=== PATIENT | female | born 2005 | race Caucasian/White ===

== ENCOUNTER 2023-07-07 16:28 | Emergency (ER) | payer MEDICARE, MEDICAID, SELFPAY ==
[2023-07-07 16:34] VITALS: BP 116/71; PULSE 101; RESP 16; TEMP 36.5; O2SAT 99
[2023-07-07 16:47] VITALS: BP 116/71; PULSE 101; RESP 16; TEMP 36.5; O2SAT 99
--- NOTE | 2023-07-07 16:56 | ED.URI ---
HPI - URI/Sore Throat General Chief Complaint: Upper Respiratory Infection Stated Complaint: cough Time Seen by Provider: 07/07/23 16:56 Source: patient Mode of arrival: ambulatory Limitations: no limitations History of Present Illness HPI Narrative: 18-year-old female presented for complaint of cough and sinus congestion for over 2 weeks. Endorses she felt short of breath with exertion And had some wheezing yesterday. Cough worse at night. Taking DayQuil and NyQuil. Hx MS, on Ocrevis infusion. Denies smoking. Related Data Home Medications Medication Instructions Recorded Confirmed cetirizine 10 mg capsule (Zyrtec) 10 mg PO DAILY 07/07/23 07/07/23 cholecalciferol (vitamin D3) 50 50 mcg PO DAILY 07/07/23 07/07/23 mcg (2,000 unit) capsule (Vitamin D3) cyproheptadine 4 mg tablet 6 mg PO BID 07/07/23 07/07/23 divalproex 500 mg tablet,delayed 500 mg PO Q12H 07/07/23 07/07/23 release (Depakote) etonogestrel 68 mg subdermal 1 implant subdermal ONCE 07/07/23 07/07/23 implant (Nexplanon) gabapentin 600 mg tablet 600 mg PO TID 07/07/23 07/07/23 ocrelizumab 30 mg/mL intravenous 300 mg IV ONCE 07/07/23 07/07/23 solution (Ocrevus) sertraline 150 mg capsule 150 mg PO DAILY 07/07/23 07/07/23 Allergies Allergy/AdvReac Type Severity Reaction Status Date / Time No Known Allergies Allergy Verified 07/07/23 16:44 Review of Systems Review of Systems: CONSTITUTIONAL: Denies body aches, fever, chills, or sweats. EYES: Denies visual changes, redness, or discharge. ENT: Reports rhinorrhea, congestion, Denies sore throat, or otalgia. CARDIOVASCULAR: Denies chest pain, palpitations, or edema. RESPIRATORY: Reports cough, denies sob, wheezing. GASTROINTESTINAL: Denies abdominal pain, nausea, vomiting, or diarrhea. GENITOURINARY: Denies dysuria or hematuria. SKIN: Denies rash, itching, or wounds. MUSCULOSKELETAL: Denies back pain, joint pain, or myalgia. NEUROLOGIC: Denies headache, numbness, tingling, or weakness. All systems reviewed & are unremarkable except as noted in HPI and below [facility] Past Medical History Medical History (Updated 07/07/23 @ 17:08 by Alina Bejarano APRN) Multiple sclerosis Comments At time of signature, I have reviewed and agree with nursing past medical, surgical, social and family history unless otherwise noted. Please see nursing chart for further information. There is no relevant family history pertinent to the presenting complaint Exam Narrative: GENERAL: Well-appearing, in no acute distress. EYES: EOMI. No redness or drainage. Conjunctivae normal. ENT: Mucous membranes pink and moist. Mild rhinorrhea. TMs normal bilaterally. Throat normal. Uvula midline. NECK: Normal AROM. Supple. CHEST: No respiratory distress. Lungs clear to all mejia. Occasional moist cough. HEART: Regular rate and rhythm. No murmur appreciated. ABDOMEN: Soft, nontender, nondistended, normal active bowel sounds. EXTREMITIES: Normal range of motion. No edema. SKIN: Warm, dry, no rash. Capillary refill normal. Normal skin turgor. NEURO: Alert and oriented x3. Gait steady. PSYCH: Normal affect. Course Course Emergency Course: Patient is aware of diagnosis, understands and agrees to treatment plan. Anticipatory guidance given. Patient agrees to follow-up as directed and is aware of reasons to seek care at the emergency department. Portions of this record may have been created with voice recognition software Level of Care: Express Care Visit Vital Signs Vital signs: Vital Signs Temperature 97.7 F 07/07/23 16:34 Pulse Rate 101 H 07/07/23 16:34 Respiratory Rate 16 07/07/23 16:34 Blood Pressure 116/71 07/07/23 16:34 Pulse Oximetry 99 07/07/23 16:34 Oxygen Delivery Room Air 07/07/23 16:34 Temperature 97.7 F 07/07/23 16:47 Pulse Rate 101 H 07/07/23 16:47 Respiratory Rate 16 07/07/23 16:47 Blood Pressure 116/71 07/07/23 16:47 Pulse Oximetry 99 1
== END 2023-07-07 17:07 | disposition home or self-care (01) ==
PROVIDERS: Emergency Provider Nurse Practitioner Family; PCP Pediatrics
DX: G35 Multiple sclerosis (principal); J22 Unspecified acute lower respiratory infection; Z79.899 Other long term (current) drug therapy
CPT/HCPCS: 99213; G0463